=== PATIENT | female | born 2005 | race African-American/Black ===

== ENCOUNTER 2023-12-11 19:42 | Emergency (ER) | payer SELFPAY ==
[~2023-12-11] VITALS: Ht 162.6 cm; Wt 62.6 kg
[2023-12-11 20:29] VITALS: PULSE 86; RESP 16; TEMP 98.7
[2023-12-11] MEDS ORDERED: DEXAMETHASONE SOD PHOS 10 MG/1 ML VIAL ONE (20:48)
[2023-12-11] MEDS ORDERED: PIPERACILLIN/TAZOBACTAM 3.375 GM VIAL ONE (20:48)
[2023-12-11] MEDS: DEXAMETHASONE SOD PHOS 10 MG/1 ML VIAL IV ONE (20:48)
[2023-12-11 20:58] LABS: EOSINOPHILS % 0.4 % (0.0-6.0); HEMATOCRIT 39.8 % (34.2-44.1); HEMOGLOBIN 13.3 g/dL (12.0-16.0); LYMPHOCYTES # (AUTO) 1.2 (1.0-3.2); MEAN CORPUSCULAR HEMOGLOBIN 28.5 pg (28-32); MEAN CORPUSCULAR HGB CONC 33.4 g/dL (31-35); MEAN CORPUSCULAR VOLUME 85.2 fL (81-99); MONOCYTES # (AUTO) 0.6 (0.2-0.8); MONOCYTES % 10.3 % (4.4-11.3); NEUTROPHILS # (AUTO) 3.8 (2.1-6.9); NEUTROPHILS % 67.1 % (38.7-80.0); PLATELET COUNT 272 x10e3/uL (140-360); RED BLOOD COUNT 4.67 x10e6/uL (3.6-5.1); RED CELL DISTRIBUTION WIDTH 12.5 % (11.7-14.4); WHITE BLOOD COUNT 5.63 x10e3/uL (4.8-10.8)
[2023-12-11 21:13] LABS: ANION GAP 15.7 mmol/L (8-16); CALCIUM 9.6 mg/dL (8.4-10.2); CREATININE, SERUM 0.77 mg/dL (0.57-1.11); POTASSIUM 3.7 mmol/L (3.5-5.1)
[2023-12-11] MEDS ORDERED: IOPAMIDOL 370 MG/ML 100 ML INFUS..BTL INJ ONE (21:28)
[2023-12-11] MEDS ORDERED: AMOX TR-K CLV1 EAC2 PO (23:11)
[2023-12-11] MEDS ORDERED: IBUPROFEN 600 MG TAB ONE (23:28)
[2023-12-11] MEDS: IBUPROFEN 600 MG TAB PO STA (23:28)
[2023-12-11 23:31] VITALS: BP 107/76; O2SAT 100
== END 2023-12-11 23:35 | disposition home or self-care (01) ==
LOC: ER 19:55
DX: K04.7 Periapical abscess without sinus (principal); R53.83 Other fatigue
CPT/HCPCS: 36415; 70491; 80048; 84702; 85025; 99284; J1100; J2543; Q9967